=== PATIENT | male | born 1955 | race Caucasian/White ===

== ENCOUNTER → 2017-07-03 | Outpatient (CLI) | payer BC ==
[~2017-07-03] MED LIST: ASPIRIN 32325 MG/TAB PO; ASPIRIN E.C. 8181 MG PO; COLACE 100100 MG/CAP PO; LIPITOR20 MG PO; LISINOPRIL2.5 MG PO; LOPRESSOR 225 MG/TAB PO; NEXIUM 20MG CAP20 MG PO; NEXIUM 40MG40 MG PO; NORCO 325 MG-51 TAB PO; PLAVIX 75MG TAB75 MG PO; PRIL40 PO; PRINIVIL20 MG PO; PYRIDIUM 100MG100 MG PO; WELLBUTRIN XL300 M1 PO
== END ==
LOC: COL.RAD 07:13
DX: K44.9 Diaphragmatic hernia without obstruction or gangrene (principal); N40.0 Benign prostatic hyperplasia without lower urinary tract symptoms; N28.9 Disorder of kidney and ureter, unspecified; Z85.51 Personal history of malignant neoplasm of bladder
CPT/HCPCS: Q9967

== ENCOUNTER 2018-01-27 11:32 | Outpatient (RCR) | payer OTHER | END 2018-01-27 13:01 | disposition home or self-care (01) | LOC: WSOH 11:32 | DX: M25.512 Pain in left shoulder (principal) | CPT/HCPCS: J1030 ==

== ENCOUNTER → 2018-03-18 | Outpatient (CLI) | payer OTHER | LOC: COL.RAD 07:19 | DX: M75.122 Complete rotator cuff tear or rupture of left shoulder, not specified as traumatic (principal); M75.82 Other shoulder lesions, left shoulder; S46.812A Strain of other muscles, fascia and tendons at shoulder and upper arm level, left arm, initial encounter; M75.22 Bicipital tendinitis, left shoulder; M19.012 Primary osteoarthritis, left shoulder ==

== ENCOUNTER 2018-03-20 10:54 | Outpatient (RCR) | payer OTHER | END 2018-03-21 09:32 | disposition home or self-care (01) | LOC: WSOH 10:54 | DX: M25.512 Pain in left shoulder (principal) ==

== ENCOUNTER 2018-05-13 09:42 | Outpatient (RCR) | payer OTHER | END 2018-06-11 12:41 | disposition home or self-care (01) | LOC: WSC 09:42 | DX: Z01.818 Encounter for other preprocedural examination (principal) ==

== ENCOUNTER → 2018-07-22 | Outpatient (CLI) | payer BC | LOC: COL.RAD 08:52 | DX: I71.4 Abdominal aortic aneurysm, without rupture (principal); I51.7 Cardiomegaly; I08.0 Rheumatic disorders of both mitral and aortic valves; I77.810 Thoracic aortic ectasia ==

== ENCOUNTER 2018-08-15 11:15 | Outpatient (RCR) | payer OTHER | END 2018-08-17 | disposition home or self-care (01) | LOC: WSC | DX: S46.012D Strain of muscle(s) and tendon(s) of the rotator cuff of left shoulder, subsequent encounter (principal); S46.212D Strain of muscle, fascia and tendon of other parts of biceps, left arm, subsequent encounter ==

== ENCOUNTER 2018-10-15 14:15 | Outpatient (RCR) | payer OTHER | END 2018-10-15 15:17 | disposition home or self-care (01) | LOC: WSC 14:15 | DX: Z47.89 Encounter for other orthopedic aftercare (principal) ==

== ENCOUNTER → 2019-04-06 | Outpatient (CLI) | payer BC | LOC: COL.RAD 11:02 | DX: G45.9 Transient cerebral ischemic attack, unspecified (principal) ==

== ENCOUNTER → 2019-04-09 | Outpatient (CLI) | payer BC | LOC: COL.VAS 12:06 | DX: G45.9 Transient cerebral ischemic attack, unspecified (principal); E04.2 Nontoxic multinodular goiter ==

== ENCOUNTER → 2019-05-04 | Outpatient (CLI) | payer BC | LOC: COL.RAD 14:07 | DX: E04.2 Nontoxic multinodular goiter (principal) ==

== ENCOUNTER → 2020-06-07 | Outpatient (CLI) | payer MEDICARE, BC | LOC: COL.RAD 13:19 | DX: E04.2 Nontoxic multinodular goiter (principal) ==

== ENCOUNTER → 2022-08-03 | Outpatient (CLI) | payer MEDICARE, BC | LOC: COL.RAD 07-30 07:30 | DX: I71.2 Thoracic aortic aneurysm, without rupture (principal); J43.9 Emphysema, unspecified | CPT/HCPCS: Q9967 ==